=== PATIENT | male | born 1980 | race Caucasian/White ===

== ENCOUNTER 2019-06-23 11:48 | Outpatient (CLI) | payer BC ==
--- NOTE | 2019-06-23 13:09 | ULT ---
EXAM: US Testicular W Doppler PROVIDED CLINICAL HISTORY: Left testicular pain. COMPARISON: None FINDINGS: The testicles demonstrate a normal sonographic appearance bilaterally without evidence of a testicula r mass. The right testicle measures 5.1 cm x 2.4 cm x 3.5 cm with the left testicle measuring 4.7 cm x 2.5 cm x 3.5 cm. Doppler evaluation of each testicle with spectral analysis demonstrates arterial and venous flow in e ach testicle. Each epididymis demonstrates a normal sonographic appearance. Small left hydrocele is present. No hydrocele is present on the right. IMPRESSION: 1. Small left hydrocele. 2. Normal appearing bilateral testicles with arterial flow documented in each testicle.
== END 2019-06-23 11:49 | disposition home or self-care (01) ==
LOC: BICULT 11:48
PROVIDERS: ATTEND Family Medicine
DX: N50.812 Left testicular pain (principal); N43.3 Hydrocele, unspecified
CPT/HCPCS: 76870; 93976

== ENCOUNTER 2019-07-16 12:34 | Outpatient (CLI) | payer BC ==
--- NOTE | 2019-07-20 08:44 | EEG ---
Referring Physician: SUSI LEE EEG # 20-10 TEST TYPE: ROUTINE OUTPATIENT REPORT: AN EEG USING THE [employer] TEN-TWENTY SYSTEM OF ELECTRODE PLACEMENT WAS PERFORMED. The waking background is a 10 hertz alpha frequency. The patient remained awake throughout the study. Hyperventilation and photic stimulation were unremarkable. No epileptiform features were seen. IMPRESSION: THIS IS A NORMAL AWAKE EEG. Theater Technician: MIKE Junior Oracle Dba: [email or web address]
== END 2019-07-16 12:35 | disposition home or self-care (01) ==
LOC: EEG 12:34
PROVIDERS: ATTEND Family Medicine
DX: R56.9 Unspecified convulsions (principal)
CPT/HCPCS: 95816

== ENCOUNTER 2021-01-04 14:24 | Outpatient (CLI) | payer BC ==
[~2021-01-04 14:24] MED LIST: Magnevist 469MG/ML 20 ML VIAL ONE
== END 2021-01-04 14:25 | disposition home or self-care (01) ==
LOC: BICMRI 14:24
PROVIDERS: ATTEND Psychiatry & Neurology Neurology
DX: G40.209 Localization-related (focal) (partial) symptomatic epilepsy and epileptic syndromes with complex partial seizures, not intractable, without status epilepticus (principal); G56.22 Lesion of ulnar nerve, left upper limb
CPT/HCPCS: 70553; A9579

== ENCOUNTER 2025-02-16 09:00 | Outpatient (CLI) | payer OTHER | END 2025-02-16 09:01 | disposition home or self-care (01) | LOC: BICRAD 09:00 | PROVIDERS: ATTEND Chiropractor | DX: M47.816 Spondylosis without myelopathy or radiculopathy, lumbar region (principal); M47.814 Spondylosis without myelopathy or radiculopathy, thoracic region; M51.369 Other intervertebral disc degeneration, lumbar region without mention of lumbar back pain or lower extremity pain | CPT/HCPCS: 72070; 72100 ==